=== PATIENT | female | born 1960 | race Caucasian/White ===

== ENCOUNTER 2021-03-05 08:57 | Emergency (ER) | payer OTHER ==
[2021-03-05 10:48] LABS: HEMOGLOBIN 14.1 gm/dl (12.3-15.3); RED BLOOD COUNT 4.75 M/UL (4.00-5.10); WHITE BLOOD COUNT 3.8 K/UL (4.5-11.0)
[2021-03-05 11:07] LABS: BUN/CREATININE RATIO 12 (0-10)
[2021-03-05] MEDS ORDERED: IBUPROFEN600 MG PO (14:21)
[2021-03-05] MEDS ORDERED: CYCLOBENZAPRINE10 MG PO (14:21)
[2021-03-05] MEDS ORDERED: HYDROCODON-ACE1 EAC4 PO (14:28)
== END 2021-03-05 13:10 | disposition home or self-care (01) ==
LOC: ER1 08:57
PROVIDERS: Emergency Medicine
DX: R59.0 Localized enlarged lymph nodes (principal); D69.6 Thrombocytopenia, unspecified; D70.9 Neutropenia, unspecified
CPT/HCPCS: 72125; 80053; 82550; 82553; 83874; 84484; 85025; 96374; 96375; 99284; J2270; J2405; J2550